=== PATIENT | male | born 1955 | race Caucasian/White ===

== ENCOUNTER 2016-09-10 12:31 | Emergency (ER) | payer BC, OTHER ==
[2016-09-10 12:36] VITALS: PULSE 98; BMI 25.0
--- NOTE | 2016-09-10 13:02 | PDOC ---
History of Present Illness - General History Source: Patient Exam Limitations: No Limitations - History of Present Illness Initial Comments: 09/10/16 13:18 The patient is a 61 year old male with no significant past medical history who presents to the ED s/p cat bite several days ago. The patient reports his cat got into a fight with another cat and he got bitten in his right hand by his own cat when trying to separate them. Patient reports swelling, redness and pain to his right hand. Patient does not recall his last tetanus shot. Denies fever or chills. Denies rash. Denies chest pain or shortness of breath. Denies abdominal pain, nausea, vomiting, or diarrhea. Allergies: Penicillin (itchiness) Other past medical hx: Hernia (for 3 years) <Ryan Galo - Last Filed: 09/10/16 16:57> <Martinez Gayle - Last Filed: 09/10/16 17:16> - General Chief Complaint: Bite Stated Complaint: CAT BITE Time Seen by Provider: 09/10/16 13:00 Past History <Ryan Galo - Last Filed: 09/10/16 16:57> - Past Medical History Other medical history: inguinal hernia - Surgical History Abdominal Surgery: Yes (hernia) - Psycho/Social/Smoking Cessation Hx Anxiety: No Suicidal Ideation: No Smoking History: Current every day smoker Have you smoked in the past 12 months: Yes Number of Cigarettes Smoked Daily: 20 Information on smoking cessation initiated: No Hx Alcohol Use: No Drug/Substance Use Hx: No Substance Use Type: Alcohol <Martinez Gayle - Last Filed: 09/10/16 17:16> - Past Medical History Allergies/Adverse Reactions: Allergies Allergy/AdvReac Type Severity Reaction Status Date / Time Penicillins Allergy Verified 09/10/16 13:36 Home Medications: Ambulatory Orders NK [No Known Home Medication] 09/10/16 Review of Systems - Review of Systems Able to Perform ROS?: Yes Comments:: 09/10/16 13:18 GENERAL/CONSTITUTIONAL: No fever or chills. No weakness. HEAD, EYES, EARS, NOSE AND THROAT: No change in vision. No ear pain or discharge. No sore throat. CARDIOVASCULAR: No chest pain or shortness of breath. RESPIRATORY: No cough, wheezing, or hemoptysis. GASTROINTESTINAL: No nausea, vomiting, diarrhea or constipation. GENITOURINARY: No dysuria, frequency, or change in urination. MUSCULOSKELETAL: No joint or muscle swelling or pain. No neck or back pain. SKIN:+ right hand cat bite. No rash NEUROLOGIC: No headache, vertigo, loss of consciousness, or change in strength/ sensation. ENDOCRINE: No increased thirst. No abnormal weight change. HEMATOLOGIC/LYMPHATIC: No anemia, easy bleeding, or history of blood clots. ALLERGIC/IMMUNOLOGIC: No hives or skin allergy. All Other Systems: Reviewed and Negative <Ryan Galo - Last Filed: 09/10/16 16:57> *Physical Exam - Vital Signs Last Vital Signs Temp Pulse Resp BP Pulse Ox 97.8 F 98 H 18 110/72 95 09/10/16 12:32 09/10/16 12:32 09/10/16 12:32 09/10/16 12:32 09/10/16 12:32 - Physical Exam Comments: 09/10/16 13:18 GENERAL: Awake, alert, and fully oriented, in no acute distress HEAD: No signs of trauma EYES: PERRLA, EOMI, sclera anicteric, conjunctiva clear ENT: Auricles normal inspection, hearing grossly normal, nares patent, oropharynx clear without exudates. Moist mucosa NECK: Normal ROM, supple, no lymphadenopathy, JVD, or masses LUNGS: Breath sounds equal, clear to auscultation bilaterally. No wheezes, and no crackles HEART: Regular rate and rhythm, normal S1 and S2, no murmurs, rubs or gallops ABDOMEN: Soft, nontender, normoactive bowel sounds. No guarding, no rebound. No masses EXTREMITIES:+ right hand is 2, if not 3, times larger than left, there is warmth , tenderness, streaking following the flexor tendon sheath, cannot fully extend his fingers which is indicative of infectious tenosynovitis. No clubbing or cyanosis. NEUROLOGICAL: Cranial nerves II through XII grossly intact. Normal speech, normal gait SKIN: Warm, Dry, normal turgor, no rashes or lesions noted. <Ryan Galo - Last Filed: 09/10/16 16:57> - Vital Signs Last Vital Signs Temp Pulse Resp BP Pulse Ox 97.8 F 98 H 18 110/72 95 09/10/16 12:32 09/10/16 12:32 09/10/16 12:32 09/10/16 12:32 09/10/16 12:32 <Martinez Gayle - Last Filed: 09/10/16 17:16> ED Treatment Course - LABORATORY CBC & Chemistry Diagram: 09/10/16 13:25 09/10/16 13:25 - RADIOLOGY Radiograph Interpretation: 09/10/16 15:43 RAD/HAND-RIGHT Impression: No acute bony abnormalities are seen. No radiopaque foreign body is seen. Reported by: Vladimir Ennis <Ryan Galo - Last Filed: 09/10/16 16:57> - LABORATORY CBC & Chemistry Diagram: 09/10/16 13:25 09/10/16 13:25 <Martinez Gayle - Last Filed: 09/10/16 17:16> Medical Decision Making - Medical Decision Making 09/10/16 16:57 Multiple calls were made throughout the day to several surgeons, including plastics and orthopedics. Patient will be accepted through [facility] under Dr. Cooper. <Ryan Galo - Last Filed: 09/10/16 16:57> *DC/Admit/Observation/Transfer - Attestations Scribe Attestion: 09/10/16 13:18 Documentation prepared by Ryan Galo, acting as medical library assistant for Martinez Gayle MD <Ryan Galo - Last Filed: 09/10/16 16:57> - Discharge Dispostion Admit: No - Transfer to Acute Care Facility Receiving Facility: [facility] Accepting Physician:: Dr Cooper Transfer comment: 09/10/16 17:15 From ED to ED to OR <Martinez Gayle - Last Filed: 09/10/16 17:16> Diagnosis at time of Disposition: Tenosynovitis of finger and hand, Tenosynovitis of forearm - Discharge Dispostion Disposition: TRANSFER ACUTE CARE/OTHER HOSP Condition at time of disposition: Improved
[2016-09-10] MEDS ORDERED: CLINDAMYCIN 900 MG PREMIX IVPB 50 ML IVPB ONE ×2 (13:45→13:48)
[2016-09-10] MEDS ORDERED: VANCOMYCIN 1 GRAM (PRE-DOCKED) 250 ML IVPB ONE ×2 (13:45→14:25)
[2016-09-10 13:49] LABS: BASOPHIL 0.6 % (0-2.0); EOSINOPHIL 0.1 % (0-4.5); MCH 35.3 pg (25.7-33.7); MCHC 35.2 g/dl (32.0-35.9); MEAN CELL VOLUME 100.4 fl (80-96); NEUTROPHILS 83.1 % (42.8-82.8); PLATELET COUNT 161 K/MM3 (134-434); RDW 12.8 % (11.9-15.9); WHITE BLOOD COUNT 19.4 K/mm3 (4.0-10.0)
[2016-09-10 13:56] LABS: INR 1.06 (0.82-1.09); PROTHROMBIN TIME (PATIENT) 11.7 SEC (9.98-11.88)
[2016-09-10 14:15] LABS: ALBUMIN 3.2 g/dl (3.4-5.0); ANION GAP 14 (8-16); CO2 26 mmol/L (21-32); GLUCOSE,RANDOM 104 mg/dL (74-106); SGOT/AST 14 U/L (15-37); SGPT/ALT 17 U/L (12-78)
[2016-09-10 14:16] LABS: ALK PHOS 81 U/L (45-117); BILIRUBIN,TOTAL 2.2 mg/dL (0.2-1.0); TOT PROT 6.6 g/dl (6.4-8.2)
[2016-09-10] MEDS ORDERED: DIPHTH,PERTUSS(ACELL),TET VAC 0.5 ML VIAL IM ONE (15:00)
[2016-09-10] MEDS ORDERED: POTASSIUM CHLORIDE TABS 20 MEQ TABLET.ER (FP) PO ONE ×2 (15:50→15:52)
[2016-09-10 16:59] VITALS: BP 100/84; TEMP 98
== END 2016-09-10 17:31 | disposition short-term general hospital (02) ==
LOC: JER 12:31
PROC: 3E0234Z Introduction of Serum, Toxoid and Vaccine into Muscle, Percutaneous Approach (ICD-10-PCS; principal; 2016-09-10)
PROC: 3E02329 Introduction of Other Anti-infective into Muscle, Percutaneous Approach (ICD-10-PCS; 2016-09-10)
DX: M65.841 Other synovitis and tenosynovitis, right hand (principal); M65.831 Other synovitis and tenosynovitis, right forearm; W55.01XA Bitten by cat, initial encounter; Y93.89 Activity, other specified; Y92.009 Unspecified place in unspecified non-institutional (private) residence as the place of occurrence of the external cause; F17.210 Nicotine dependence, cigarettes, uncomplicated
CPT/HCPCS: 36415; 73130-TC-RT; 80053; 85025; 85610; 87040; 90471; 90715; 96365; 96368; 99285-25

== ENCOUNTER 2016-09-20 12:30 | Emergency (ER) | payer OTHER ==
[2016-09-20 12:37] VITALS: BP 118/59; PULSE 77; TEMP 97.8; BMI 24.2
[2016-09-20] MEDS ORDERED: RABIES VACCINE (PCEC)/PF 2.5 UNIT/VIAL IM ONE (13:22)
--- NOTE | 2016-09-20 13:41 | PDOC ---
History of Present Illness - General Chief Complaint: Revisit,Rabies Injection Stated Complaint: RABIES SHOT Time Seen by Provider: 09/20/16 12:59 History Source: Patient Exam Limitations: No Limitations - History of Present Illness Initial Comments: 09/20/16 13:37 Chief complaint: Here for second rabies vaccine History of present illness: Patient is a 8-year-old female with no significant medical history here today with her mother due to patient having nasal congestion, with watery itchy eyes times one week and dry cough. Today patient has fever. Patient denies any sore throat any difficulty breathing or swallowing. Patient also complaining of nausea intermittently times one week. Patient has had no recent travel. Patient is up-to-date with immunizations except for influenza. Patient has had no known sick contacts. Timing/Duration: other (09/10/16 bite on [address] hand by cat) Severity: moderate Past History - Past Medical History Allergies/Adverse Reactions: Allergies Allergy/AdvReac Type Severity Reaction Status Date / Time Penicillins Allergy Verified 09/20/16 12:34 Home Medications: Ambulatory Orders NK [No Known Home Medication] 09/10/16 - Surgical History Abdominal Surgery: Yes (hernia) - Psycho/Social/Smoking Cessation Hx Anxiety: No Suicidal Ideation: No Smoking History: Current every day smoker Have you smoked in the past 12 months: Yes Number of Cigarettes Smoked Daily: 10 Information on smoking cessation initiated: No Hx Alcohol Use: No Drug/Substance Use Hx: No Substance Use Type: Alcohol Review of Systems - Review of Systems Able to Perform ROS?: Yes Constitutional: No: Symptoms Reported HEENTM: No: Symptoms Reported Respiratory: No: Symptoms reported Cardiac (ROS): No: Symptoms Reported ABD/GI: No: Symptoms Reported Musculoskeletal: No: Symptoms Reported Integumentary: Yes: Other (rt. hand bite by cat on 09/10/16) *Physical Exam - Vital Signs Last Vital Signs Temp Pulse Resp BP Pulse Ox 97.8 F 77 18 118/59 100 09/20/16 12:34 09/20/16 12:34 09/20/16 12:34 09/20/16 12:34 09/20/16 12:34 - Physical Exam General Appearance: Yes: Appropriately Dressed Respiratory/Chest: positive: Lungs Clear, Normal Breath Sounds Cardiovascular: positive: Regular Rhythm, Regular Rate, S1, S2 Integumentary: positive: Other (hand wrapped in gauge) Neurologic: positive: Alert, Normal Response, Responsive ED Treatment Course - Medications Given in the ED: ED Medications Discontinued Medications Generic Name Dose Route Start Last Admin Trade Name Slava PRN Reason Stop Dose Admin Rabies Vaccine 2.5 unit 09/20/16 13:22 09/20/16 13:27 Rabavert Rabies Vaccine IM 09/20/16 13:23 2.5 unit .ONCE ONE Administration Medical Decision Making - Medical Decision Making 09/20/16 13:40 Patient is a 8-year-old female with no significant medical history here today with her mother due to patient having nasal congestion, with watery itchy eyes times one week and dry cough. Today patient has fever. Patient denies any sore throat any difficulty breathing or swallowing. Patient also complaining of nausea intermittently times one week. Patient has had no recent travel. Patient is up-to-date with immunizations except for influenza. Patient has had no known sick contacts. Rabies Vaccine # 2 PLAN: Rabies vaccine 2.5 ml IM left deltoid return here on 09/24/16 for 3 rd rabies vaccine and 4th on 10/01/16 09/20/16 13:45 *DC/Admit/Observation/Transfer Diagnosis at time of Disposition: Rabies, need for prophylactic vaccination against - Discharge Dispostion Disposition: HOME Condition at time of disposition: Stable - Patient Instructions Additional Instructions: Return Here for your third rabies vaccine on 09/24/2016 and 3-year-old fourth rabies vaccine on 10/01/2016 Patient voiced understanding of discharge instructions and all questions were answered
== END 2016-09-20 13:51 | disposition home or self-care (01) ==
LOC: JERFT 12:30
PROC: 3E0234Z Introduction of Serum, Toxoid and Vaccine into Muscle, Percutaneous Approach (ICD-10-PCS; principal; 2016-09-20)
DX: Z20.3 Contact with and (suspected) exposure to rabies (principal)
CPT/HCPCS: 90471; 90675; 99281-25

== ENCOUNTER 2016-09-24 11:48 | Emergency (ER) | payer OTHER ==
[2016-09-24 12:09] VITALS: BP 123/69; PULSE 77; TEMP 97.6; BMI 24.2
[2016-09-24] MEDS ORDERED: RABIES VACCINE (PCEC)/PF 2.5 UNIT/VIAL IM ONE (12:21)
--- NOTE | 2016-09-24 12:24 | PDOC ---
History of Present Illness - General Chief Complaint: Revisit,Rabies Injection Stated Complaint: RABIES SHOT Time Seen by Provider: 09/24/16 12:20 History Source: Patient Exam Limitations: No Limitations - History of Present Illness Initial Comments: 09/25/16 12:30 Chief complaint: Here for second rabies series History of present illness:The patient is a 61 year old male with no significant past medical history who presents to the ED s/p cat bite orginally on 09/10/16 and was transferred to [facility] and hospitalized for 8 days due to infection as a result of the cat bite. The patient reports his cat got into a fight with another cat and he got bitten in his right hand by his own cat when trying to separate them. Pt. is followed by [facility] for wound casre. Pt. saw him today. Here for his third rabies series vaccine. 09/25/16 12:34 Timing/Duration: changing over time (right hand slowly improving ) Severity: mild Associated Symptoms: reports: denies symptoms Past History - Past Medical History Allergies/Adverse Reactions: Allergies Allergy/AdvReac Type Severity Reaction Status Date / Time Penicillins Allergy Verified 09/24/16 12:07 Home Medications: Ambulatory Orders Unobtainable [Unobtainable] 09/24/16 Other medical history: DENIES. - Surgical History Abdominal Surgery: Yes (hernia) - Psycho/Social/Smoking Cessation Hx Anxiety: No Suicidal Ideation: No Smoking History: Current every day smoker Have you smoked in the past 12 months: Yes Number of Cigarettes Smoked Daily: 18 Information on smoking cessation initiated: No Hx Alcohol Use: No Drug/Substance Use Hx: No Substance Use Type: Alcohol Review of Systems - Review of Systems Able to Perform ROS?: Yes Constitutional: No: Symptoms Reported HEENTM: No: Symptoms Reported Respiratory: No: Symptoms reported Cardiac (ROS): No: Symptoms Reported ABD/GI: No: Symptoms Reported : No: Symptoms Reported Musculoskeletal: No: Symptoms Reported Integumentary: Yes: Erythema (rt. dorsal hand open area approx 4 cm x 1 cm, rt. lateral hand 2 cm x 1 cm) Neurological: No: Symptoms reported *Physical Exam - Vital Signs Last Vital Signs Temp Pulse Resp BP Pulse Ox 97.6 F 77 19 123/69 100 09/24/16 12:07 09/24/16 12:07 09/24/16 12:07 09/24/16 12:07 09/24/16 12:07 - Physical Exam General Appearance: Yes: Appropriately Dressed Comments:: 09/24/16 12:30 radial 4 + rt. Integumentary: positive: Erythema (rt. hand open wound (cat bite) approx 4 cm x 2 cm dorsal aspect, rt. lateral hand approx approx 1 cm x 2 cm with surrounding erythema, edema) Neurologic: positive: Alert, Normal Response, Responsive Medical Decision Making - Medical Decision Making 09/25/16 12:34 The patient is a 61 year old male with no significant past medical history who presents to the ED s/p cat bite orginally on 09/10/16 and was transferred to [facility] and hospitalized for 8 days due to infection as a result of the cat bite. The patient reports his cat got into a fight with another cat and he got bitten in his right hand by his own cat when trying to separate them. Pt. is followed by [facility] for wound care. Pt. saw him today. Here for his third rabies series vaccine. Third Rabies vaccine PLAN: pt. to return for final rabies series 10/01/16 Pt. to follow up with wound care wiht Dr. Shirley *DC/Admit/Observation/Transfer Diagnosis at time of Disposition: Rabies, need for prophylactic vaccination against - Discharge Dispostion Disposition: HOME Condition at time of disposition: Stable - Patient Instructions Additional Instructions: Return on 10/01/16 for your third rabies vaccine Continue with wound care with Dr. Ryan as he recommends Return to emergency room sooner if any fever or increased redness of the wound
== END 2016-09-24 12:40 | disposition home or self-care (01) ==
LOC: JERFT 11:48
PROC: 3E0234Z Introduction of Serum, Toxoid and Vaccine into Muscle, Percutaneous Approach (ICD-10-PCS; principal; 2016-09-24)
DX: Z20.3 Contact with and (suspected) exposure to rabies (principal)
CPT/HCPCS: 90471; 90675; 99281-25

== ENCOUNTER 2016-10-01 12:27 | Emergency (ER) | payer OTHER ==
[2016-10-01 12:34] VITALS: BP 108/78; PULSE 91; TEMP 97.8; BMI 24.3
[2016-10-01] MEDS ORDERED: RABIES VACCINE (PCEC)/PF 2.5 UNIT/VIAL IM ONE (13:00)
[2016-10-01] MEDS ORDERED: traMADol HCL 50 MG TABLET PO ONE (13:00)
[2016-10-01] MEDS ORDERED: traMADol HCL 50 MG TABLET ONE (13:08)
--- NOTE | 2016-10-01 13:11 | PDOC ---
History of Present Illness - General Chief Complaint: Bite Stated Complaint: NEEDS RABIE SHOT Time Seen by Provider: 10/01/16 12:36 History Source: Patient - History of Present Illness Associated Symptoms: denies: fever/chills Past History - Past Medical History Allergies/Adverse Reactions: Allergies Allergy/AdvReac Type Severity Reaction Status Date / Time Penicillins Allergy Verified 09/24/16 12:07 Home Medications: Ambulatory Orders NK [No Known Home Medication] 10/01/16 Other medical history: denies - Surgical History Abdominal Surgery: Yes (hernia) - Psycho/Social/Smoking Cessation Hx Anxiety: No Suicidal Ideation: No Smoking History: Current every day smoker Have you smoked in the past 12 months: Yes Number of Cigarettes Smoked Daily: 18 Information on smoking cessation initiated: Yes Hx Alcohol Use: Yes (occasional) Drug/Substance Use Hx: No Substance Use Type: Alcohol Review of Systems - Review of Systems Constitutional: No: Chills, Fever Integumentary: Yes: Other (hand wounds) *Physical Exam - Vital Signs Last Vital Signs Temp Pulse Resp BP Pulse Ox 97.8 F 91 H 20 108/78 100 10/01/16 12:29 10/01/16 12:29 10/01/16 12:29 10/01/16 12:29 10/01/16 12:29 - Physical Exam General Appearance: Yes: Appropriately Dressed. No: Apparent Distress HEENT: positive: Normal Voice Neck: positive: Supple Respiratory/Chest: negative: Respiratory Distress Extremity: positive: Other (2 large gaping wounds to dorsum of R hand w/ limited erythema, no increased warmth, no discharge, FROMI to fingers without significant pain) Integumentary: positive: Dry, Warm Neurologic: positive: Fully Oriented, Alert, Normal Mood/Affect ED Treatment Course - Medications Given in the ED: ED Medications Discontinued Medications Generic Name Dose Route Start Last Admin Trade Name Freq PRN Reason Stop Dose Admin Rabies Vaccine 2.5 unit 10/01/16 13:00 10/01/16 13:02 Rabavert Rabies Vaccine IM 10/01/16 13:01 2.5 unit .ONCE ONE Administration Medical Decision Making - Medical Decision Making 10/01/16 13:06 61 yo M, here for last rabies vaccine. Pt was initially seen in ED at [facility] > 3 weeks ago after being bitten by his own cat which sometimes stray outdoors per pt. Upon evaluation, was found to have tenosynovitis of R hand and was transferred to [facility] where he was admitted for 8 days per pt. States he continues to take multiple antibiotics w/ significant improvement in sxs. Continues to report of some pain to R hand and has ran out of his tylenol #3 per pt. No f/c. Scheduled to f/u with hand specialist in 3 days. Pt well junior and stable w/ 2 large open wounds to dorsum of R hand w/ limited erythema. No increased warmth or discharge, FROMI to fingers without sig pain. Rabies vaccine given and dressing replaced. Discharged in stable condition to f/u with hand 10/01/16 13:13 *DC/Admit/Observation/Transfer Diagnosis at time of Disposition: Rabies, need for prophylactic vaccination against - Discharge Dispostion Disposition: HOME Condition at time of disposition: Good - Patient Instructions Additional Instructions: Continue to follow up with hand specialist
== END 2016-10-01 13:18 | disposition home or self-care (01) ==
LOC: JERFT 12:27
PROC: 3E0234Z Introduction of Serum, Toxoid and Vaccine into Muscle, Percutaneous Approach (ICD-10-PCS; principal; 2016-10-01)
DX: Z20.3 Contact with and (suspected) exposure to rabies (principal)
CPT/HCPCS: 90471; 90675; 99282-25

== ENCOUNTER 2023-01-18 09:46 | Inpatient (IN) | payer OTHER ==
[2023-01-18] MEDS ORDERED: chlordiazePOXIDE HCL 25 MG CAPSULE PO ONE (11:28)
[2023-01-18] MEDS ORDERED: chlordiazePOXIDE HCL 25 MG CAPSULE ONE ×2 (11:32→21:33)
[2023-01-18 12:17] LABS: BASO % 0.7 % (0-2.0); HEMOGLOBIN 16.8 GM/dL (11.7-16.9); LYMPH % 21.2 % (8-40); MCH 35.4 pg (25.7-33.7); MCHC 33.5 g/dl (32.0-35.9); MEAN CELL VOLUME 105.7 fl (80-96); MEAN PLT VOLUME 9.2 fl (7.5-11.1); MONO % 8.6 % (3.8-10.2); NEUT % 68.5 % (42.8-82.8); PLATELET COUNT 201 10^3/uL (134-434); RBC 4.73 M/mm3 (4.00-5.60); RDW 12.7 % (11.9-15.9); WHITE BLOOD COUNT 9.3 K/mm3 (4.0-10.0)
[2023-01-18 12:23] LABS: INR 0.95 (0.83-1.09)
[2023-01-18 12:26] LABS: ACTIVATED PTT 29.5 SECONDS (25.2-36.5)
[2023-01-18 12:35] LABS: CHLORIDE 105 mmol/L (98-107); POTASSIUM 4.9 mmol/L (3.5-5.1)
[2023-01-18 12:37] LABS: BLOOD UREA NITROGEN 15.7 mg/dL (7-18); CALCIUM 9.6 mg/dL (8.5-10.1); CO2 28 mmol/L (21-32); GLUCOSE,RANDOM 105 mg/dL (74-106)
[2023-01-18 12:38] LABS: ALBUMIN 3.6 g/dl (3.4-5.0)
[2023-01-18 12:40] LABS: SGPT/ALT 28 U/L (13-61)
[2023-01-18 12:41] LABS: CREATININE 0.9 mg/dL (0.55-1.3); SGOT/AST 26 U/L (15-37)
[2023-01-18 12:41] LABS: PH,URINE 5.5 (5.0-8.0); URINE APPEARANCE CLEAR; URINE BILIRUBIN NEGATIVE (NEGATIVE); URINE COLOR YELLOW; URINE GLUCOSE (UA) NEGATIVE (NEGATIVE); URINE KETONE NEGATIVE (NEGATIVE); URINE LEUK ESTERASE NEGATIVE (NEGATIVE); URINE NITRITE NEGATIVE (NEGATIVE); URINE PROTEIN NEGATIVE (NEGATIVE); URINE UROBILINOGEN 0.2 mg/dL (0.2-1.0)
[2023-01-18 12:42] LABS: BILIRUBIN,TOTAL 1.1 mg/dL (0.2-1); TOT PROT 7.1 g/dl (6.4-8.2)
[2023-01-18 12:43] LABS: ALK PHOS 85 U/L (45-117); ANION GAP 9 MMOL/L (8-16); SODIUM 142 mmol/L (136-145)
[2023-01-18 13:19] LABS: ANISOCYTOSIS 1+; MACROCYTOSIS 1+
[2023-01-18] MEDS ORDERED: ACETAMINOPHEN 325 MG TABLET (FP) PO ONE (14:09)
[2023-01-18] MEDS ORDERED: ACETAMINOPHEN 325 MG TABLET (FP) ONE (14:45)
[2023-01-18] MEDS ORDERED: ACETAMINOPHEN 500 MG TABLET (FP) PO PRN (15:31)
[2023-01-18] MEDS ORDERED: CLINDAMYCIN 600MG PREMIX IVPB 600 MG/50 ML BAG IVPB ONE (17:05)
[2023-01-18] MEDS: CLINDAMYCIN 600MG PREMIX IVPB 600 MG/50 ML BAG IVPB SCH (17:12)
[2023-01-18] MEDS ORDERED: NICOTINE 14 MG/24 HOURS TOPICAL PATCH TD ONE (18:46)
[2023-01-18] MEDS: NICOTINE 14 MG/24 HOURS TOPICAL PATCH TD SCH (18:58)
[2023-01-18] MEDS: chlordiazePOXIDE HCL 25 MG CAPSULE PO SCH (22:24)
[2023-01-19] MEDS ORDERED: CLINDAMYCIN 600MG PREMIX IVPB 600 MG/50 ML BAG IVPB ONE (02:06)
[2023-01-19] MEDS: CLINDAMYCIN 600MG PREMIX IVPB 600 MG/50 ML BAG IVPB SCH ×2 (03:46→09:29)
[2023-01-19] MEDS: chlordiazePOXIDE HCL 25 MG CAPSULE PO SCH ×3 (06:41→22:12)
[2023-01-19] MEDS: THIAMINE HCL 100 MG TABLET (FP) PO SCH (09:29)
[2023-01-19] MEDS: FOLIC ACID 1 MG TABLET (FP) PO SCH (09:29)
[2023-01-19] MEDS: NICOTINE 14 MG/24 HOURS TOPICAL PATCH TD SCH (09:29)
[2023-01-19 10:28] LABS: BASO % 0.7 % (0-2.0); EOS % 2.4 % (0-4.5); HEMATOCRIT 49.1 % (35.4-49); LYMPH % 32.2 % (8-40); MCH 35.8 pg (25.7-33.7); MCHC 34.5 g/dl (32.0-35.9); MEAN CELL VOLUME 103.7 fl (80-96); MEAN PLT VOLUME 8.7 fl (7.5-11.1); MONO % 7.1 % (3.8-10.2); NEUT % 57.6 % (42.8-82.8); PLATELET COUNT 194 10^3/uL (134-434); RBC 4.73 M/mm3 (4.00-5.60); RDW 12.6 % (11.9-15.9); WHITE BLOOD COUNT 7.2 K/mm3 (4.0-10.0)
[2023-01-19 10:49] LABS: POTASSIUM 4.1 mmol/L (3.5-5.1)
[2023-01-19 10:52] LABS: CALCIUM 9.1 mg/dL (8.5-10.1)
[2023-01-19 10:54] LABS: BLOOD UREA NITROGEN 15.3 mg/dL (7-18)
[2023-01-19 10:56] LABS: CREATININE 0.9 mg/dL (0.55-1.3)
[2023-01-19 13:23] VITALS: BMI 21.7
[2023-01-19] MEDS: chlordiazePOXIDE HCL 25 MG CAPSULE PO PRN ×2 (14:37→17:30)
[2023-01-19] MEDS: AZTREONAM 1 GM in DEXTROSE 5%-WATER - 50 ML IVPB SCH (17:31)
[2023-01-19] MEDS: NICOTINE 21 MG/24 HOURS TOPICAL PATCH TD SCH (22:12)
[2023-01-19] MEDS: ASCORBIC ACID 250 MG TABLET (FP) PO SCH (22:13)
[2023-01-20] MEDS: AZTREONAM 1 GM in DEXTROSE 5%-WATER - 50 ML IVPB SCH ×3 (01:40→18:09)
[2023-01-20] MEDS: chlordiazePOXIDE HCL 25 MG CAPSULE PO SCH (05:56)
[2023-01-20] MEDS ORDERED: LORazepam 2 MG/ML SDV VIAL IVPUSH PRN (08:14)
[2023-01-20 10:15] LABS: BASO % 0.9 % (0-2.0); EOS % 2.5 % (0-4.5); HEMATOCRIT 49.8 % (35.4-49); HEMOGLOBIN 16.7 GM/dL (11.7-16.9); LYMPH % 28.6 % (8-40); MCH 35.4 pg (25.7-33.7); MCHC 33.6 g/dl (32.0-35.9); MEAN CELL VOLUME 105.5 fl (80-96); MEAN PLT VOLUME 9.3 fl (7.5-11.1); MONO % 8.9 % (3.8-10.2); NEUT % 59.1 % (42.8-82.8); PLATELET COUNT 192 10^3/uL (134-434); RBC 4.72 M/mm3 (4.00-5.60); RDW 12.5 % (11.9-15.9); WHITE BLOOD COUNT 8.7 K/mm3 (4.0-10.0)
[2023-01-20] MEDS: NICOTINE 21 MG/24 HOURS TOPICAL PATCH TD SCH (10:31)
[2023-01-20] MEDS: AMINO ACIDS/PROTEIN HYDROLYS 30 ML LIQUID.PKT PO SCH (10:31)
[2023-01-20] MEDS: FOLIC ACID 1 MG TABLET (FP) PO SCH (10:32)
[2023-01-20] MEDS: THIAMINE HCL 100 MG TABLET (FP) PO SCH (10:32)
[2023-01-20] MEDS: MULTIVITAMINS (DAILY MVI) TABLET (FP) PO SCH (10:32)
[2023-01-20] MEDS: ASCORBIC ACID 250 MG TABLET (FP) PO SCH (10:32)
[2023-01-20 11:03] LABS: CHOLESTEROL 151 mg/dL (50-200)
[2023-01-20 11:05] LABS: LDL CHOLESTEROL (ONLY SJRH) 87 mg/dL (5-100)
[2023-01-20 11:06] LABS: HDL CHOLESTEROL 51 mg/dL (40-60)
[2023-01-20] MEDS: COLLAGENASE CLOSTRIDIUM HIST. 30 GRAMS TUBE TP SCH (13:33)
[2023-01-21] MEDS: ASCORBIC ACID 250 MG TABLET (FP) PO SCH ×3 (00:10→23:14)
[2023-01-21] MEDS: AZTREONAM 1 GM in DEXTROSE 5%-WATER - 50 ML IVPB SCH (01:38)
[2023-01-21] MEDS: AMINO ACIDS/PROTEIN HYDROLYS 30 ML LIQUID.PKT PO SCH (09:26)
[2023-01-21 11:00] LABS: BASO % 0.8 % (0-2.0); EOS % 2.7 % (0-4.5); HEMATOCRIT 51.5 % (35.4-49); HEMOGLOBIN 17.8 GM/dL (11.7-16.9); LYMPH % 30.2 % (8-40); MCHC 34.5 g/dl (32.0-35.9); MEAN CELL VOLUME 104.3 fl (80-96); MEAN PLT VOLUME 9.1 fl (7.5-11.1); MONO % 9.6 % (3.8-10.2); NEUT % 56.7 % (42.8-82.8); PLATELET COUNT 200 10^3/uL (134-434); RBC 4.94 M/mm3 (4.00-5.60); RDW 12.6 % (11.9-15.9); WHITE BLOOD COUNT 9.2 K/mm3 (4.0-10.0)
[2023-01-21 11:02] LABS: INR 0.97 (0.83-1.09); PROTHROMBIN TIME (PATIENT) 11.3 SEC (9.7-13.0)
[2023-01-21] MEDS: FOLIC ACID 1 MG TABLET (FP) PO SCH (11:25)
[2023-01-21] MEDS: THIAMINE HCL 100 MG TABLET (FP) PO SCH (11:25)
[2023-01-21] MEDS: MULTIVITAMINS (DAILY MVI) TABLET (FP) PO SCH (11:26)
[2023-01-21] MEDS: NICOTINE 21 MG/24 HOURS TOPICAL PATCH TD SCH (11:26)
[2023-01-21] MEDS: COLLAGENASE CLOSTRIDIUM HIST. 30 GRAMS TUBE TP SCH (11:27)
[2023-01-21] MEDS: MEROPENEM 1 GM in DEXTROSE 5%-WATER 100 ML IVPB SCH ×2 (12:28→17:42)
[2023-01-21] MEDS ORDERED: ALBUTEROL SO4 HFA INHALER IH ONE (15:26)
[2023-01-21] MEDS: MELATONIN 5 MG TABLETS PO SCH (23:15)
[2023-01-22] MEDS: MEROPENEM 1 GM in DEXTROSE 5%-WATER 100 ML IVPB SCH ×2 (01:12→10:20)
[2023-01-22] MEDS ORDERED: ALBUTEROL SO4 HFA INHALER IH PRN (08:33)
[2023-01-22 08:52] LABS: HEMATOCRIT 50.1 % (35.4-49); MCH 35.6 pg (25.7-33.7); MEAN CELL VOLUME 104.7 fl (80-96); MEAN PLT VOLUME 9.3 fl (7.5-11.1); PLATELET COUNT 194 10^3/uL (134-434); RBC 4.79 M/mm3 (4.00-5.60); RDW 12.7 % (11.9-15.9); WHITE BLOOD COUNT 10.1 K/mm3 (4.0-10.0)
[2023-01-22 09:06] LABS: POTASSIUM 3.9 mmol/L (3.5-5.1)
[2023-01-22 09:10] LABS: BLOOD UREA NITROGEN 17.2 mg/dL (7-18); CALCIUM 9.3 mg/dL (8.5-10.1)
[2023-01-22 09:11] LABS: ALBUMIN 3.1 g/dl (3.4-5.0)
[2023-01-22 09:12] LABS: CREATININE 0.8 mg/dL (0.55-1.3)
[2023-01-22 09:14] LABS: BILIRUBIN,TOTAL 0.6 mg/dL (0.2-1); TOT PROT 6.3 g/dl (6.4-8.2)
[2023-01-22] MEDS: AMINO ACIDS/PROTEIN HYDROLYS 30 ML LIQUID.PKT PO SCH (10:20)
[2023-01-22] MEDS: MULTIVITAMINS (DAILY MVI) TABLET (FP) PO SCH (10:20)
[2023-01-22] MEDS: ENOXAPARIN NA (PORCINE) 40 MG/0.4 ML DISP.SYRIN SQ SCH (10:20)
[2023-01-22] MEDS: ASCORBIC ACID 250 MG TABLET (FP) PO SCH ×2 (10:20→22:08)
[2023-01-22] MEDS: THIAMINE HCL 100 MG TABLET (FP) PO SCH (10:20)
[2023-01-22] MEDS: FOLIC ACID 1 MG TABLET (FP) PO SCH (10:20)
[2023-01-22] MEDS: COLLAGENASE CLOSTRIDIUM HIST. 30 GRAMS TUBE TP SCH (10:21)
[2023-01-22] MEDS: NICOTINE 21 MG/24 HOURS TOPICAL PATCH TD SCH (10:21)
[2023-01-22] MEDS: CLINDAMYCIN HCL 150 MG CAPSULE (FP) PO SCH (22:08)
[2023-01-22] MEDS: MELATONIN 5 MG TABLETS PO SCH (22:08)
[2023-01-23] MEDS: CLINDAMYCIN HCL 150 MG CAPSULE (FP) PO SCH (05:01)
[2023-01-23] MEDS ORDERED: LACTOBACILLUS ACIDOPHILUS 1 TABLET PO SCH (10:00)
[2023-01-23 10:06] LABS: BASO % 0.9 % (0-2.0); EOS % 2.9 % (0-4.5); HEMATOCRIT 51.6 % (35.4-49); LYMPH % 32.2 % (8-40); MCH 36.2 pg (25.7-33.7); MCHC 34.9 g/dl (32.0-35.9); MEAN CELL VOLUME 103.8 fl (80-96); MEAN PLT VOLUME 9.2 fl (7.5-11.1); MONO % 11.6 % (3.8-10.2); NEUT % 52.4 % (42.8-82.8); PLATELET COUNT 215 10^3/uL (134-434); RBC 4.97 M/mm3 (4.00-5.60); RDW 12.7 % (11.9-15.9); WHITE BLOOD COUNT 8.9 K/mm3 (4.0-10.0)
[2023-01-23 10:26] VITALS: BP 102/68; PULSE 88; RESP 20; TEMP 98.5
[2023-01-23] MEDS: ENOXAPARIN NA (PORCINE) 40 MG/0.4 ML DISP.SYRIN SQ SCH (10:26)
[2023-01-23] MEDS: NICOTINE 21 MG/24 HOURS TOPICAL PATCH TD SCH (10:26)
[2023-01-23] MEDS: COLLAGENASE CLOSTRIDIUM HIST. 30 GRAMS TUBE TP SCH (10:27)
[2023-01-23] MEDS: ASCORBIC ACID 250 MG TABLET (FP) PO SCH (10:27)
[2023-01-23] MEDS: MULTIVITAMINS (DAILY MVI) TABLET (FP) PO SCH (10:27)
[2023-01-23] MEDS: FOLIC ACID 1 MG TABLET (FP) PO SCH (10:27)
[2023-01-23] MEDS: THIAMINE HCL 100 MG TABLET (FP) PO SCH (10:27)
[2023-01-23] MEDS: AMINO ACIDS/PROTEIN HYDROLYS 30 ML LIQUID.PKT PO SCH (10:27)
[2023-01-23 11:59] LABS: BLOOD UREA NITROGEN 19.3 mg/dL (7-18); CALCIUM 9.2 mg/dL (8.5-10.1); CREATININE 0.9 mg/dL (0.55-1.3); POTASSIUM 4.5 mmol/L (3.5-5.1)
== END 2023-01-23 13:49 | disposition home or self-care (01) | DRG 728 ==
LOC: JER 09:46 → JERBED 15:23 → OBSVTOIN 15:25 → J5S 01-19 06:12
PROVIDERS: ADMIT Internal Medicine; ATTEND Internal Medicine
DX: N49.2 Inflammatory disorders of scrotum (principal); L98.498 Non-pressure chronic ulcer of skin of other sites with other specified severity; K40.20 Bilateral inguinal hernia, without obstruction or gangrene, not specified as recurrent; N50.89 Other specified disorders of the male genital organs; F10.20 Alcohol dependence, uncomplicated; N40.0 Benign prostatic hyperplasia without lower urinary tract symptoms; B95.61 Methicillin susceptible Staphylococcus aureus infection as the cause of diseases classified elsewhere; B95.1 Streptococcus, group B, as the cause of diseases classified elsewhere
CPT/HCPCS: 36415; 74177-TC; 80048; 80053; 80061; 81003; 82668; 83036; 83605; 85025; 85027; 85610; 85730; 86140; 86850; 86900; 86901; 87040; 87070; 87077; 87086; 87186; 87205; 93005; 93010; 99285-25; G0378; Q9967